=== PATIENT | male | born 1940 | race Caucasian/White ===

== ENCOUNTER 2017-01-15 21:10 | Emergency (ER) | payer MEDICARE, MEDICAID ==
[~2017-01-15] VITALS: Ht 182.9 cm; Wt 84.8 kg
--- NOTE | 2017-01-15 22:17 | NUR ---
PT AMBULATORY TO ER BED 10. PRESENTS W/ A LLE SWELLING AND DRAINAGE THAT STARTED LAST NIGHT AFTER A SKIN TEAR. PT IS CONCERNED ABOUT CELLULITIS. DENIES ANY OTHER COMPLAINT. VSS. AWAITINGMD EVLA.
--- NOTE | 2017-01-15 22:19 | NUR ---
JACEK C4 PLANNER AT BEDSIDE FOR EVAL.
--- NOTE | 2017-01-15 22:57 | NUR ---
U/S TECH AT BEDSIDE FOR LLE DUPLEX ULTRASOUND.
--- NOTE | 2017-01-15 23:44 | NUR ---
Patient discharged to home in stable condition. Written and verbal after care instructions given. Patient verbalizes understanding of instruction.
[2017-01-15 23:45] VITALS: BP 128/77
== END 2017-01-15 23:46 | disposition home or self-care (01) ==
LOC: ER 21:17
DX: L03.116 Cellulitis of left lower limb (principal); I25.2 Old myocardial infarction; I10 Essential (primary) hypertension; E11.9 Type 2 diabetes mellitus without complications; Z88.6 Allergy status to analgesic agent; Z88.1 Allergy status to other antibiotic agents; Z91.040 Latex allergy status; Z95.1 Presence of aortocoronary bypass graft
CPT/HCPCS: 93971; 99284; A4606; A6402; Z7610